=== PATIENT | female | born 1995 | race American Indian/Alaskan Native ===

== ENCOUNTER 2016-07-05 03:38 | Emergency (ER) | payer BC ==
[2016-07-05 05:30] LABS: Basophils % (Auto) 0.4 % (0.0-1.8); Eosinophils % (Auto) 2.2 % (0.0-4.3); Hematocrit 37.7 % (30.3-42.9); Hemoglobin 12.5 gm/dl (10.1-14.3); Mean Corpuscular HGB Conc 33 % (30-34); Mean Corpuscular Hemoglobin 29 pg (28-32); Mean Corpuscular Volume 87 fl (79-97); Platelet Count 295 K/mm3 (140-440); Red Blood Count 4.33 M/mm3 (3.65-5.03); Red Cell Distribution Width 12.4 % (13.2-15.2)
[2016-07-05 05:55] LABS: Anion Gap 18 mmol/L; BUN/Creatinine Ratio 18.33; Blood Urea Nitrogen 11 mg/dL (7-17); Carbon Dioxide 25 mmol/L (22-30); Chloride 99.6 mmol/L (98-107); Glucose 90 mg/dL (65-100); Potassium 3.7 mmol/L (3.6-5.0); Sodium 139 mmol/L (137-145)
--- NOTE | 2016-07-05 11:48 | XRay Report ---
CHEST TWO VIEWS: 07/05/16 11:02 CLINICAL: Chest pain. COMPARISON: None FINDINGS: Normal heart and pulmonary vasculature. The lungs are normally expanded and clear.The bones and soft tissues are unremarkable. IMPRESSION: Normal chest.
--- NOTE | 2016-07-05 11:50 | Emergency Department Report ---
ED Chest Pain HPI - General Chief Complaint: Chest Pain Stated Complaint: CHEST TIGHTNESS Time Seen by Provider: 07/05/16 10:17 Source: patient Mode of arrival: Stretcher Limitations: No Limitations - History of Present Illness Initial Comments: 21-year-old female with a past medical history of multiple sclerosis presents to the hospital complains of chest pain. Patient complaining of intermittent chest tightness rated 7/10 in intensity. Symptoms occurred at rest. No aggravating or alleviating factors reported. Pain rated 7/10 in intensity at times. Positive associated shortness of breath. Patient denies nausea, vomiting, cough, fever, calf tenderness, edema, recent travel, or history of PE/ DVT. Patient is on oral control pills. Patient states her multiple sclerosis is in remission and she has been compliant with her medications. 2 days ago patient was seen at [facility] for flank pain and dizziness. She was treated with IV fluids, medication for vertigo, he received a noncontrast CT abdomen and pelvis that was unremarkable at that time as per patient and her mother at the bedside.. Severity scale (0 -10): 7 - Related Data Home Medications Medication Instructions Recorded Confirmed Last Taken Copaxone 40 mg PO 3XW 07/05/16 07/05/16 Unknown Lo Loestrin Fe 1-10 Tablet 1 tab PO DAILY 07/05/16 07/05/16 Unknown Previous Rx's Medication Instructions Recorded Last Taken Type Ibuprofen [Motrin] 600 mg PO Q8H PRN #30 tablet 07/05/16 Unknown Rx Allergies Allergy/AdvReac Type Severity Reaction Status Date / Time No Known Allergies Allergy Verified 07/06/15 03:18 ALFRED score - Alfred Score Age > 65: (0) No Aspirin use within the Past 7 Days: (0) No 3 or more CAD Risk Factors: (0) No 2 or more Angina events in past 24 hrs: (0) No Known CAD with more than 50% Stenosis: (0) No Elevated Cardiac Markers: (0) No ST Deviation Greater than 0.5mm: (0) No ALFRED Score: 0 ED Review of Systems ROS: Stated complaint: CHEST TIGHTNESS Other details as noted in HPI Comment: All other systems reviewed and negative Other: Constitutional: No fevers chills Eyes: No eye pain visual changes ENT: No ear pain or throat pain Neck: Denies pain Respiratory: as per hpi Cardiovascular: as per hpi GI: Denies abdominal pain, nausea, vomiting, diarrhea : Denies dysuria Musculoskeletal: Denies back pain Skin: Denies rash, lesions, erythema Neurologic: Denies headache, numbness, weakness Psychiatric: Denies suicidal ideation, hallucinations ED Past Medical Hx - Past Medical History Additional medical history: multiple sclerosis - Surgical History Past Surgical History?: No - Social History Smoking Status: Never Smoker Substance Use Type: None - Medications Home Medications: Home Medications Medication Instructions Recorded Confirmed Last Taken Type Copaxone 40 mg PO 3XW 07/05/16 07/05/16 Unknown History Ibuprofen [Motrin] 600 mg PO Q8H PRN #30 tablet 07/05/16 Unknown Rx Lo Loestrin Fe 1-10 Tablet 1 tab PO DAILY 07/05/16 07/05/16 Unknown History ED Physical Exam - General Limitations: No Limitations - Other Other exam information: General: No limitations, patient is alert in no acute distress Head exam: Atraumatic, normocephalic Eyes exam: Normal appearance, pupils equal reactive to light, extraocular movements intact ENT: Moist mucous membrane, normal oropharynx Neck exam: Normal inspection, full range of motion, no meningismus nontender Respiratory exam: Clear to auscultation bilateral, no wheezes, rales, crackles Cardiovascular: Normal rate and rhythm, normal heart sounds Abdomen: Soft, nondistended, and nontender, with normal bowel sounds, no rebound, or guarding Extremity: Full range of motion normal inspection no deformity, no calf tenderness or edema Back: Normal Inspection, full range of motion, no tenderness Neurologic: Alert, oriented x3, cranial nerves intact, no motor or sensory deficit Psychiatric: normal affect, normal mood Skin: Warm, dry, intact ED Course Vital Signs 07/05/16 04:59 Temperature 98.4 F Pulse Rate 81 Respiratory 16 Rate Blood Pressure 104/73 Blood Pressure 104/73 [Right] O2 Sat by Pulse 100 Oximetry - Reevaluation(s) Reevaluation #1: 07/05/16 11:50 Patient stable in the ED without any distress. ED Medical Decision Making - Lab Data Result diagrams: 07/05/16 05:22 07/05/16 05:22 Lab Results 07/05/16 07/05/16 07/05/16 Range/Units 05:22 05:22 07:56 WBC 7.0 (4.5-11.0) K/mm3 RBC 4.33 (3.65-5.03) M/mm3 Hgb 12.5 (10.1-14.3) gm/dl Hct 37.7 (30.3-42.9) % MCV 87 (79-97) fl MCH 29 (28-32) pg MCHC 33 (30-34) % RDW 12.4 L (13.2-15.2) % Plt Count 295 (140-440) K/mm3 Lymph % (Auto) 46.7 H (13.4-35.0) % Davidson % (Auto) 8.0 H (0.0-7.3) % Eos % (Auto) 2.2 (0.0-4.3) % Baso % (Auto) 0.4 (0.0-1.8) % Lymph # 3.3 (1.2-5.4) K/mm3 Davidson # 0.6 (0.0-0.8) K/mm3 Eos # 0.2 (0.0-0.4) K/mm3 Baso # 0.0 (0.0-0.1) K/mm3 Seg Neutrophils % 42.7 (40.0-70.0) % Seg Neutrophils # 3.0 (1.8-7.7) K/mm3 D-Dimer (0-234) ng/mlDDU Sodium 139 (137-145) mmol/L Potassium 3.7 (3.6-5.0) mmol/L Chloride 99.6 (98-107) mmol/L Carbon Dioxide 25 (22-30) mmol/L Anion Gap 18 mmol/L BUN 11 (7-17) mg/dL Creatinine 0.6 L (0.7-1.2) mg/dL Estimated GFR > 60 ml/min BUN/Creatinine Ratio 18.33 % Glucose 90 (65-100) mg/dL Calcium 9.0 (8.4-10.2) mg/dL Troponin T < 0.010 < 0.010 (0.00-0.029) ng/mL 07/05/16 07/05/16 Range/Units 10:50 10:50 WBC (4.5-11.0) K/mm3 RBC (3.65-5.03) M/mm3 Hgb (10.1-14.3) gm/dl Hct (30.3-42.9) % MCV (79-97) fl MCH (28-32) pg MCHC (30-34) % RDW (13.2-15.2) % Plt Count (140-440) K/mm3 Lymph % (Auto) (13.4-35.0) % Davidson % (Auto) (0.0-7.3) % Eos % (Auto) (0.0-4.3) % Baso % (Auto) (0.0-1.8) % Lymph # (1.2-5.4) K/mm3 Davidson # (0.0-0.8) K/mm3 Eos # (0.0-0.4) K/mm3 Baso # (0.0-0.1) K/mm3 Seg Neutrophils % (40.0-70.0) % Seg Neutrophils # (1.8-7.7) K/mm3 D-Dimer 167.47 (0-234) ng/mlDDU Sodium (137-145) mmol/L Potassium (3.6-5.0) mmol/L Chloride (98-107) mmol/L Carbon Dioxide (22-30) mmol/L Anion Gap mmol/L BUN (7-17) mg/dL Creatinine (0.7-1.2) mg/dL Estimated GFR ml/min BUN/Creatinine Ratio % Glucose (65-100) mg/dL Calcium (8.4-10.2) mg/dL Troponin T < 0.010 (0.00-0.029) ng/mL - EKG Data -: EKG Interpreted by Me (sinus rate [address]-T wave inversion) - EKG Data When compared to previous EKG there are: previous EKG unavailable - Radiology Data Radiology results: report reviewed (chest x-ray PA and lateral: Normal) - Medical Decision Making Patient does not have any cardiac risk factors. Patient's only risk factor for PE is control pill use and patient does not present with DVT symptoms. Overall patient's lower pretest probability for a blood clot and has a negative d-dimer and therefore further imaging was not obtained. Patient also presents with normal vital signs including heart rate, blood pressure, and pulse oximetry. no Distress noted in the ED. Patient be discharged home with outpatient follow-up. - Differential Diagnosis atypical chest pain, anxiety, PE Critical Care Time: No Critical care attestation.: If time is entered above; I have spent that time in minutes in the direct care of this critically ill patient, excluding procedure time. ED Disposition Clinical Impression: Atypical chest pain, Multiple sclerosis Disposition: DISCHARGED TO HOME OR SELFCARE Is pt being admited?: No Does the pt Need Aspirin: No Condition: Stable Instructions: Chest Pain (ED) Additional Instructions: Take the medication as needed for pain. Follow-up with your physician for further evaluation. Return if symptoms worsen. Prescriptions: Ibuprofen [Motrin] 600 mg PO Q8H PRN #30 tablet PRN Reason: Pain Referrals: PRIMARY CARE, [Primary Care Provider] - 3-5 Days Time of Disposition: 11:57
[2016-07-05 12:26] VITALS: BP 104/61
== END 2016-07-05 12:26 | disposition home or self-care (01) ==
LOC: ED 03:38
DX: R07.89 Other chest pain (principal); G35 Multiple sclerosis
CPT/HCPCS: 36415; 71020; 80048; 84484; 85025; 85379; 93005; 93010

== ENCOUNTER 2017-02-06 11:10 | Outpatient (CLI) | payer BC ==
--- NOTE | 2017-02-17 18:07 | Magnetic Resonance Report ---
MR scan of the cranium was performed with and without contrast. Pulse sequences included: 1. T1 weighted sagittal and axial images without contrast and T1 axial and coronal images with contrast 2. T2 weighted axial and coronal images 3. FLAIR axial images 4. Diffusion-weighted axial images 5. Apparent diffusion coefficient images Views of the posterior fossa showed a normal craniocervical junction. Cerebellar pontine angles were normal with normal seventh-eighth nerve complexes. Brainstem and cerebellum were normal. The ventricular system showed no dilatation or distortion. Images of the hemispheres showed multiple areas of increased signal in the periventricular white matter consistent with Whittaker's fingers. No black holes were seen. Sinuses, pituitary, flow voids in the white earth of Weiss, orbits, and basal ganglia were normal. There are no abnormal areas of enhancement with contrast. Impression: Abnormal MR scan of the cranium with and without contrast a. multiple white matter lesions consistent with the diagnosis of multiple sclerosis this study was compared to the patient's previous study of 12/16/2015 and no significant changes are seen. She is radiologically stable.
== END 2017-02-06 11:11 | disposition home or self-care (01) ==
LOC: MRI 11:10
PROVIDERS: ATTEND Specialist
DX: G35 Multiple sclerosis (principal); R93.8 Abnormal findings on diagnostic imaging of other specified body structures
CPT/HCPCS: 70553; A9577

== ENCOUNTER 2017-10-31 02:11 | Emergency (ER) | payer OTHER, BC ==
[2017-10-31] MEDS ORDERED: TYLENOL ONE (05:00)
[2017-10-31] MEDS ORDERED: TYLENOL PO ONE (05:03)
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
[2017-10-31 13:31] VITALS: BP 118/71
== END 2017-10-31 13:30 | disposition home or self-care (01) ==
LOC: ED 02:11
DX: O9A.211 Injury, poisoning and certain other consequences of external causes complicating pregnancy, first trimester (principal); S86.911A Strain of unspecified muscle(s) and tendon(s) at lower leg level, right leg, initial encounter; Z3A.08 8 weeks gestation of pregnancy; R07.81 Pleurodynia; V49.59XA Passenger injured in collision with other motor vehicles in traffic accident, initial encounter; Y93.89 Activity, other specified; Y99.8 Other external cause status; Y92.89 Other specified places as the place of occurrence of the external cause
CPT/HCPCS: 36415; 71045; 76801; 76817; 84702

== ENCOUNTER 2017-11-05 00:49 | Emergency (ER) | payer BC, OTHER ==
[2017-11-05 00:56] VITALS: BP 102/64
== END 2017-11-05 00:50 | disposition left against medical advice (07) ==
LOC: ED 00:49
DX: R10.9 Unspecified abdominal pain (principal); Z53.21 Procedure and treatment not carried out due to patient leaving prior to being seen by health care provider

== ENCOUNTER 2017-12-16 12:42 | Outpatient (CLI) | payer BC | END 2017-12-16 12:43 | disposition home or self-care (01) | LOC: LAB 12:42 | PROVIDERS: ATTEND Nurse Practitioner Women's Health | DX: O20.9 Hemorrhage in early pregnancy, unspecified (principal); Z3A.15 15 weeks gestation of pregnancy | CPT/HCPCS: 86900; 86901 ==

== ENCOUNTER 2018-06-08 20:34 | Inpatient (IN) | payer BC, OTHER ==
[2018-06-08] MEDS ORDERED: XYLOCAINE 2% INFILTRATI ONE (22:08)
[2018-06-08] MEDS ORDERED: MINERAL OIL PO PRN (22:08)
[2018-06-08] MEDS ORDERED: BRETHINE SUB-Q PRN (22:08)
[2018-06-08] MEDS ORDERED: BRETHINE IVP PRN (22:08)
[2018-06-08 22:47] LABS: Hematocrit 31.7 % (30.3-42.9); Hemoglobin 10.3 gm/dl (10.1-14.3); Mean Corpuscular HGB Conc 33 % (30-34); Mean Corpuscular Volume 81 fl (79-97); Platelet Count 306 K/mm3 (140-440); Red Blood Count 3.94 M/mm3 (3.65-5.03); Red Cell Distribution Width 15.9 % (13.2-15.2)
[2018-06-08] MEDS ORDERED: PITOCin/NS 20 UNIT/1000ML DRIP 20 UNITS/1,000 ML BAG IV SCH (23:00)
[2018-06-08] MEDS: LACTATED RINGERS 1,000 ML IV SCH (23:21)
[2018-06-08] MEDS ORDERED: SUBLIMAZE IV ONE (23:47)
[2018-06-08] MEDS ORDERED: SUBLIMAZE ONE (23:51)
[2018-06-09] MEDS: LACTATED RINGERS 1,000 ML IV SCH ×2 (00:10→05:16)
[2018-06-09] MEDS ORDERED: NARCAN 2 MG/2 ML IV PRN (00:55)
--- NOTE | 2018-06-09 00:59 | Anesthesia Consultation ---
Anesthesia Consult and Med Hx Date of service: 06/09/18 - Airway Anesthetic Teeth Evaluation: Good ROM Head & Neck: Adequate Mental/Hyoid Distance: Adequate Mallampati Class: Class II Intubation Access Assessment: Good - Pulmonary Exam CTA: Yes - Cardiac Exam Cardiac Exam: RRR - Pre-Operative Health Status ASA Pre-Surgery Classification: ASA3 Proposed Anesthetic Plan: Epidural - Pulmonary Hx Smoking: No Hx Asthma: No Hx Respiratory Symptoms: No SOB: No COPD: No Home Oxygen Therapy: No Hx Pneumonia: No Hx Sleep Apnea: No - Cardiovascular System Hx Hypertension: No Hx Coronary Artery Disease: No Hx Heart Attack/AMI: No Hx Angina: No Hx Percutaneous Transluminal Coronary Angioplasty (PTCA): No Hx Cardia Arrhythmia: No Hx Pacemaker: No Hx Internal Defibrillator: No Hx Valvular Heart Disease: No Hx Heart Murmur: No Hx Peripheral Vascular Disease: No - Central Nervous System Hx Neuromuscular Disorder: Yes (multiple sclerosis) Hx Seizures: No CVA: No Hx Back Pain: No Hx Psychiatric Problems: No - Gastrointestinal Hx Ulcer: No Hx Gastroesophageal Reflux Disease: No - Endocrine Hx Renal Disease: No Hx End Stage Renal Disease: No Hx Cirrhosis: No Hx Liver Disease: No Hx Insulin Dependent Diabetes: No Hx Non-Insulin Dependent Diabetes: No Hx Thyroid Disease: No Hx Hypothyroidism: No Hx Hyperthyroidism: No - Hematic Hx Anemia: Yes (iron) Hx Sickle Cell Disease: No - Other Systems Hx Alcohol Use: No Hx Substance Use: No Hx Cancer: No Hx Obesity: No
[2018-06-09] MEDS ORDERED: fentaNYL-BUPIV 2 MCG/ML-0.125% 200 MCG/100 ML BAG EPIDURAL SCH (01:00)
--- NOTE | 2018-06-09 05:23 | History and Physical Report ---
History of Present Illness Date of examination: 06/09/18 (pt presented with c/o worsening ctx) Date of admission: 06/08/18 23:01 History of present illness: EDC Confirmation: 06/07/2018 Gestational Age: 9 6/7 weeks Past History : 1 Term Births: 0 Premature Births: 0 Living Children: 0 Para: 0 Mult. Births: 0 Prev : 0 Prev. attempt? 0 Aborta: 0 Elect. Ab: 0 Spont. Ab: 0 Ectopics: 0 Past Medical History: MS (2009) Past Surgical History: Mouth Family History Summary: Other family member - Has No Family History of Ovarvian Cancer - Entered On: 11/08/2017 Other family member - Has No Family History of Colon Cancer - Entered On: 11/08/2017 Other family member - Has No Family History of Breast Cancer - Entered On: 11/08/2017 Other family member - Has Family History of Diabetes - Entered On: 11/08/2017 Other family member - Has Family History of CVA or Stroke - Entered On: 11/08/2017 Other family member - Has Family History of Coronary Heart Disease - Entered On: 11/08/2017 Social History: Marital Status: Single Children: 0 Occupation: [employer] Risk Factors: Smoked Tobacco Use: Never smoker Drug use: no HIV high-risk behavior: low risk Alcohol use: yes Drinks per day: social Dietary Counseling: pn yes Past Medical History 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 of genital herpes: no Genetic History Congenital Heart Defect: Mom: no Dad: no Isacc Disease: Mom: no Dad: no Thalassemia Mom: no Dad: no Neural Tube Defect Mom: no Dad: no Down's Syndrome Mom: no Dad: no Abdon-Sachs Mom: no Dad: no Sickle Cell Disease/Trait Mom: no Dad: no Hemophilia Mom: no Dad: no Muscular Dystrophy Mom: no Dad: no Cystic Fibrosis Mom: no Dad: no Alejandra Chorea Mom: no Dad: no Mental Retardation Mom: no Dad: no Fragile X Mom: no Dad: no Other Genetic/Chromosomal Disorder Mom: no Dad: no Child w/other defect Mom: no Dad: no Active Medications: PLUS/IRON 27-1 MG ORAL TABLET ( VIT-FE FUMARATE-FA) 1 po q day as directed COPAXONE 40 MG/ML SUBCUTANEOUS SOLUTION PREFILLED SYRINGE (GLATIRAMER ACETATE) Current Allergies: No known allergies Past History - Obstetrical History Expected Date of Delivery: 06/07/18 Actual Gestation: 40 Week(s) 2 Day(s) : 1 Para: 0 Hx # Term Pregnancies: 0 Number of Pregnancies: 0 Spontaneous Abortions: 0 Induced : 0 Number of Living Children: 0 Medications and Allergies Allergies Allergy/AdvReac Type Severity Reaction Status Date / Time No Known Allergies Allergy Verified 07/06/15 03:18 Home Medications Medication Instructions Recorded Confirmed Last Taken Type Copaxone 40 mg PO 3XW 07/05/16 07/05/16 Unknown History Active Meds: Active Medications Ephedrine Sulfate (Ephedrine Sulfate) 10 mg IV Q2M PRN PRN Reason: Hypotension Ephedrine Sulfate (Ephedrine Sulfate) 10 mg IV Q2M PRN PRN Reason: Hypotension Lactated Ringer's (Lactated Ringers) 1,000 mls @ 125 mls/hr IV DIRECT MADELINE Last Admin: 06/09/18 05:16 Dose: 125 mls/hr Documented by: Oxytocin/Sodium Chloride (Pitocin/Ns 20 Unit/1000ml Drip) 20 units in 1,000 mls @ 125 mls/hr IV DIRECT MADELINE Fentanyl/Bupivacaine/Sodium Chlor (Fentanyl-Bupiv 2 Mcg/Ml-0.125%) 200 mcg in 100 mls @ 12 mls/hr EPIDURAL TITR MADELINE; Protocol Last Admin: 06/09/18 01:24 Dose: 12 mls/hr Documented by: Mineral Oil (Mineral Oil) 30 ml PO QHS PRN PRN Reason: Constipation Naloxone HCl (Narcan 2 Mg/2 Ml) 0.2 mg IV Q5M PRN PRN Reason: Respiratory sedation Terbutaline Sulfate (Brethine) 0.25 mg SUB-Q ONCE PRN PRN Reason: Hyperstimulation/Hypertonicity Terbutaline Sulfate (Brethine) 0.25 mg IVP ONCE PRN PRN Reason: Hyperstimulation/Hypertonicity - Vital Signs Vital signs: Vital Signs Pulse BP 81 121/78 06/08/18 21:13 06/08/18 21:13 Temp Pulse Resp BP Pulse Ox 99.0 F 84 18 112/64 100 06/09/18 00:04 06/09/18 05:17 06/09/18 03:24 06/09/18 04:44 06/09/18 05:17 - Physical Exam Breasts: Positive: deferred Cardiovascular: Regular rate, Normal S1, Normal S2 Lungs: Positive: Normal air movement Abdomen: Positive: normal appearance, soft, normal bowel sounds. Negative: distention, tenderness Genitourinary (Female): Positive: normal external genitalia, normal perenium Vulva: both: normal Vagina: Positive: normal moisture. Negative: discharge Cervix: Negative: lesion, discharge Uterus: Positive: normal size, normal contour Adnexa: both: normal Anus/Rectum: Positive: normal perianal skin, heme negative. Negative: rectal mass, hemorrhoids Extremities: Positive: normal Deep Tendon Reflex Grade: Normal +2 - Obstetrical FHR: category 1 Uterine Contraction Monitor Mode: External Cervical Dilatation: 4 (per human services manager) Cervical Effacement Percentage: 80 station: -2 Uterine Contraction Pattern: Regular Uterine Tone Measurement Phase: Resting Uterine Contraction Intensity: Moderate Results Result Diagrams: 06/08/18 22:20 Abnormal lab results 06/08/18 Range/Units 22:20 MCH 26 L (28-32) pg RDW 15.9 H (13.2-15.2) % All other labs normal. GBS NEGATIVE HBsAg Screen Negative Negative *1 RPR Non Reactive Non Reactive *2 Rubella Antibodies, IgG 5.41 index Immune >0.99 *3 Non-immune <0.90 Equivocal 0.90 - 0.99 Immune >0.99 ABO Grouping A *4 Rh Factor Positive *5 Please note: Prior records for this patient's ABO / Rh type are not available for additional verification. Antibody Screen Negative Negative *6 WBC 9.2 x10E3/uL 3.4-10.8 *7 RBC [L] 3.60 x10E6/uL 3.77-5.28 *8 Hemoglobin [L] 10.5 g/dL 11.1-15.9 *9 Hematocrit [L] 30.9 % 34.0-46.6 *10 MCV 86 fL 79-97 *11 MCH 29.2 pg 26.6-33.0 *12 MCHC 34.0 g/dL 31.5-35.7 *13 RDW 13.6 % 12.3-15.4 *14 Platelets 242 x10E3/uL 150-379 *15 Neutrophils 70 % Not Estab. *16 Lymphs 20 % Not Estab. *17 Monocytes 9 % Not Estab. *18 Eos 1 % Not Estab. *19 Basos 0 % Not Estab. *20 ! Immature Cells <No Reported Value> *21 Neutrophils (Absolute) 6.5 x10E3/uL 1.4-7.0 *22 Lymphs (Absolute) 1.8 x10E3/uL 0.7-3.1 *23 Monocytes(Absolute) 0.8 x10E3/uL 0.1-0.9 *24 Eos (Absolute) 0.1 x10E3/uL 0.0-0.4 *25 Baso (Absolute) 0.0 x10E3/uL 0.0-0.2 *26 ! Immature Granulocytes 0 % Not Estab. *27 ! Immature Grans (Abs) 0.0 x10E3/uL 0.0-0.1 *28 ! NRBC <No Reported Value> *29 Hematology Comments: <No Reported Value> *30 Tests: (3) HCV Ab w/Rflx to Verification ([id number]) ! HCV Ab <0.1 s/co ratio 0.0-0.9 *54 Tests: (4) Comment: ([id number]) ! Comment: SPRCS *55 Non reactive HCV antibody screen is consistent with no HCV infection, unless recent infection is suspected or other evidence exists to indicate HCV infection. Tests: (5) Panel 027416 ([id number]) HIV Screen 4th Generation wRfx Non Reactive Non Reactive *56 Tests: (6) Urine Culture, Routine ([id number]) Urine Culture, Routine Final report *57 Tests: (7) Result ([id number]) ! Result 1 No growth *58 Assessment and Plan 23yo @ 40 weeks in active labor GBS Negative Pt states she does not need any treatment for the MS while in labor. She will restart her meds when she goes home. Orders in EMR
--- NOTE | 2018-06-09 05:24 | Progress Note ---
Assessment and Plan Pt c/o some itching SVE 9,100,0 AROM meconium NICU notified CTX Q1-2 50 mod Cat 1 strip All findings and concerns explained to pt and family. Anticipate delivery. Subjective - Subjective Date of service: 06/09/18 (pt c/o itching after epidural) Interval history: EDC Confirmation: 06/07/2018 Gestational Age: 9 6/7 weeks Past History : 1 Term Births: 0 Premature Births: 0 Living Children: 0 Para: 0 Mult. Births: 0 Prev : 0 Prev. attempt? 0 Aborta: 0 Elect. Ab: 0 Spont. Ab: 0 Ectopics: 0 Past Medical History: MS (2009) Past Surgical History: Mouth Family History Summary: Other family member - Has No Family History of Ovarvian Cancer - Entered On: 11/08/2017 Other family member - Has No Family History of Colon Cancer - Entered On: 11/08/2017 Other family member - Has No Family History of Breast Cancer - Entered On: 11/08/2017 Other family member - Has Family History of Diabetes - Entered On: 11/08/2017 Other family member - Has Family History of CVA or Stroke - Entered On: 11/08/2017 Other family member - Has Family History of Coronary Heart Disease - Entered On: 11/08/2017 Social History: Marital Status: Single Children: 0 Occupation: [employer] [employer] Risk Factors: Smoked Tobacco Use: Never smoker Drug use: no HIV high-risk behavior: low risk Alcohol use: yes Drinks per day: social Dietary Counseling: pn yes Past Medical History 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 of genital herpes: no Genetic History Congenital Heart Defect: Mom: no Dad: no Isacc Disease: Mom: no Dad: no Thalassemia Mom: no Dad: no Neural Tube Defect Mom: no Dad: no Down's Syndrome Mom: no Dad: no Abdon-Sachs Mom: no Dad: no Sickle Cell Disease/Trait Mom: no Dad: no Hemophilia Mom: no Dad: no Muscular Dystrophy Mom: no Dad: no Cystic Fibrosis Mom: no Dad: no Martin Chorea Mom: no Dad: no Mental Retardation Mom: no Dad: no Fragile X Mom: no Dad: no Other Genetic/Chromosomal Disorder Mom: no Dad: no Child w/other defect Mom: no Dad: no Active Medications: PLUS/IRON 27-1 MG ORAL TABLET ( VIT-FE FUMARATE-FA) 1 po q day as directed COPAXONE 40 MG/ML SUBCUTANEOUS SOLUTION PREFILLED SYRINGE (GLATIRAMER ACETATE) Current Allergies: No known allergies Patient reports: movement normal Objective - Vital Signs Vital Signs: Vital Signs - 12hr 06/08/18 06/08/18 06/09/18 21:13 21:57 00:04 Temperature 98.4 F 99.0 F Pulse Rate 81 81 87 Respiratory 18 18 Rate Blood Pressure 121/78 Blood Pressure 121/78 131/60 [Left] O2 Sat by Pulse Oximetry 06/09/18 06/09/18 06/09/18 00:05 00:11 00:16 Temperature Pulse Rate 87 76 89 Respiratory Rate Blood Pressure 131/60 Blood Pressure [Left] O2 Sat by Pulse 100 100 Oximetry 06/09/18 06/09/18 06/09/18 00:21 00:26 00:31 Temperature Pulse Rate 81 80 93 H Respiratory Rate Blood Pressure Blood Pressure [Left] O2 Sat by Pulse 100 100 100 Oximetry 06/09/18 06/09/18 06/09/18 00:33 00:35 00:36 Temperature Pulse Rate 102 H 102 H 103 H Respiratory Rate Blood Pressure 146/83 136/67 Blood Pressure [Left] O2 Sat by Pulse 100 Oximetry 06/09/18 06/09/18 06/09/18 00:37 00:38 00:40 Temperature Pulse Rate 102 H 87 102 H Respiratory Rate Blood Pressure 125/76 133/77 135/81 Blood Pressure [Left] O2 Sat by Pulse Oximetry 06/09/18 06/09/18 06/09/18 00:41 00:42 00:44 Temperature Pulse Rate 106 H 101 H 91 H Respiratory Rate Blood Pressure 132/80 120/75 Blood Pressure [Left] O2 Sat by Pulse 100 Oximetry 06/09/18 06/09/18 06/09/18 00:46 00:51 00:52 Temperature Pulse Rate 88 108 H 82 Respiratory Rate Blood Pressure 122/81 121/75 118/76 Blood Pressure [Left] O2 Sat by Pulse 99 97 Oximetry 06/09/18 06/09/18 06/09/18 00:54 00:56 00:58 Temperature Pulse Rate 88 91 H 121 H Respiratory Rate Blood Pressure 116/77 109/61 105/60 Blood Pressure [Left] O2 Sat by Pulse 100 Oximetry 06/09/18 06/09/18 06/09/18 01:01 01:06 01:11 Temperature Pulse Rate 121 H 166 H 99 H Respiratory Rate Blood Pressure 110/64 109/65 Blood Pressure [Left] O2 Sat by Pulse 100 100 100 Oximetry 06/09/18 06/09/18 06/09/18 01:15 01:16 01:21 Temperature Pulse Rate 97 H 99 H 92 H Respiratory Rate Blood Pressure 98/60 110/74 Blood Pressure [Left] O2 Sat by Pulse 100 99 Oximetry 06/09/18 06/09/18 06/09/18 01:25 01:26 01:31 Temperature Pulse Rate 68 89 91 H Respiratory Rate Blood Pressure 110/57 Blood Pressure [Left] O2 Sat by Pulse 93 98 100 Oximetry 06/09/18 06/09/18 06/09/18 01:36 01:41 01:46 Temperature Pulse Rate 77 78 79 Respiratory Rate Blood Pressure 110/68 Blood Pressure [Left] O2 Sat by Pulse 99 98 100 Oximetry 06/09/18 06/09/18 06/09/18 01:51 01:56 02:01 Temperature Pulse Rate 87 81 79 Respiratory Rate Blood Pressure Blood Pressure [Left] O2 Sat by Pulse 100 100 99 Oximetry 06/09/18 06/09/18 06/09/18 02:06 02:11 02:12 Temperature Pulse Rate 83 86 80 Respiratory Rate Blood Pressure 104/69 Blood Pressure [Left] O2 Sat by Pulse 100 99 Oximetry 06/09/18 06/09/18 06/09/18 02:16 02:21 02:26 Temperature Pulse Rate 79 75 73 Respiratory Rate Blood Pressure Blood Pressure [Left] O2 Sat by Pulse 99 99 100 Oximetry 06/09/18 06/09/18 06/09/18 02:31 02:36 02:41 Temperature Pulse Rate 87 70 87 Respiratory Rate Blood Pressure Blood Pressure [Left] O2 Sat by Pulse 100 100 98 Oximetry 06/09/18 06/09/18 06/09/18 02:42 02:44 02:46 Temperature Pulse Rate 66 85 83 Respiratory Rate Blood Pressure 130/78 Blood Pressure [Left] O2 Sat by Pulse 91 99 Oximetry 06/09/18 06/09/18 06/09/18 02:51 02:56 03:01 Temperature Pulse Rate 66 94 H 76 Respiratory Rate Blood Pressure Blood Pressure [Left] O2 Sat by Pulse 99 87 99 Oximetry 06/09/18 06/09/18 06/09/18 03:06 03:11 03:16 Temperature Pulse Rate 66 90 69 Respiratory Rate Blood Pressure Blood Pressure [Left] O2 Sat by Pulse 100 98 99 Oximetry 06/09/18 06/09/18 06/09/18 03:21 03:24 03:26 Temperature Pulse Rate 82 86 Respiratory 18 Rate Blood Pressure Blood Pressure [Left] O2 Sat by Pulse 98 98 Oximetry 06/09/18 06/09/18 06/09/18 03:31 03:36 03:41 Temperature Pulse Rate 86 71 90 Respiratory Rate Blood Pressure Blood Pressure [Left] O2 Sat by Pulse 98 100 98 Oximetry 06/09/18 06/09/18 06/09/18 03:46 03:51 03:56 Temperature Pulse Rate 81 71 88 Respiratory Rate Blood Pressure Blood Pressure [Left] O2 Sat by Pulse 96 97 98 Oximetry 06/09/18 06/09/18 06/09/18 04:01 04:06 04:07 Temperature Pulse Rate 82 71 83 Respiratory Rate Blood Pressure Blood Pressure [Left] O2 Sat by Pulse 97 98 92 Oximetry 06/09/18 06/09/18 06/09/18 04:11 04:16 04:20 Temperature Pulse Rate 78 85 81 Respiratory Rate Blood Pressure Blood Pressure [Left] O2 Sat by Pulse 97 97 94 Oximetry 06/09/18 06/09/18 06/09/18 04:21 04:26 04:31 Temperature Pulse Rate 82 74 77 Respiratory Rate Blood Pressure Blood Pressure [Left] O2 Sat by Pulse 97 96 94 Oximetry 06/09/18 06/09/18 06/09/18 04:36 04:41 04:42 Temperature Pulse Rate 94 H 89 92 H Respiratory Rate Blood Pressure Blood Pressure [Left] O2 Sat by Pulse 94 97 92 Oximetry 06/09/18 06/09/18 06/09/18 04:44 04:46 04:49 Temperature Pulse Rate 72 80 96 H Respiratory Rate Blood Pressure 112/64 Blood Pressure [Left] O2 Sat by Pulse 96 93 Oximetry 06/09/18 06/09/1806/09/19 04:51 04:54 04:56 Temperature Pulse Rate 97 H 90 92 H Respiratory Rate Blood Pressure Blood Pressure [Left] O2 Sat by Pulse 95 92 94 Oximetry 06/09/18 06/09/18 06/09/18 05:01 05:07 05:12 Temperature Pulse Rate 76 95 H 86 Respiratory Rate Blood Pressure Blood Pressure [Left] O2 Sat by Pulse 96 97 96 Oximetry 06/09/18 06/09/18 05:17 05:22 Temperature 98.8 F Pulse Rate 91 H 83 Respiratory 18 Rate Blood Pressure Blood Pressure 112/64 [Left] O2 Sat by Pulse 100 99 Oximetry - Exam Breasts: deferred Cardiovascular: Regular rate Lungs: Normal air movement Abdomen: Present: normal appearance, soft. Absent: distention, tenderness Uterus: Present: normal FHR: auscultation normal, category 1 Uterine Contraction Monitor Mode: External Cervical Dilatation: 9 (AROM Meconium) Cervical Effacement Percentage: 100 station: 0 Uterine Contraction Pattern: Irregular Uterine Tone Measurement Phase: Resting Uterine Contraction Intensity: Moderate Extremities: normal Deep Tendon Reflex Grade: Normal +2 - Labs Labs: Abnormal Labs 06/08/18 22:20 MCH 26 L RDW 15.9 H Laboratory Results - last 24 hr 06/08/18 06/08/18 22:20 22:20 WBC 8.7 RBC 3.94 Hgb 10.3 Hct 31.7 MCV 81 MCH 26 L MCHC 33 RDW 15.9 H Plt Count 306 Blood Type A POSITIVE Antibody Screen Negative
[2018-06-09] MEDS ORDERED: BENADRYL IV ONE (05:33)
[2018-06-09] MEDS ORDERED: PHENERGAN PO PRN (06:10)
[2018-06-09] MEDS ORDERED: DULCOLAX PR PRN (06:10)
[2018-06-09] MEDS ORDERED: LANSINOH TP PRN (06:10)
[2018-06-09] MEDS ORDERED: ZOFRAN IV PRN (06:10)
[2018-06-09] MEDS ORDERED: TUCKS PAD TP PRN (06:10)
[2018-06-09] MEDS ORDERED: MILK OF MAGNESIA PO PRN (06:10)
[2018-06-09] MEDS ORDERED: BENADRYL PO PRN (06:10)
--- NOTE | 2018-06-09 06:26 | Procedure Note ---
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 Pit IVFs Placenta sent to pathology 8/9, EBL 300, Wgt 7-8 Mom and baby remain LDR stable - Infant A at 1 minute: 8 at 5 minutes: 9 Gender: Female (wgt 7-8)
[2018-06-09] MEDS ORDERED: SODIUM CHLORIDE FLUSH SYRINGE 10 ML IV NR (07:00)
[2018-06-09] MEDS: PRENATAL VITAMIN PO SCH ×2 (09:00→12:58)
[2018-06-09] MEDS: COLACE PO SCH ×2 (12:58→21:01)
[2018-06-09] MEDS: IBUPROFEN PO SCH ×2 (12:58→17:47)
[2018-06-09 19:31] LABS: Hematocrit 26.7 % (30.3-42.9); Hemoglobin 8.8 gm/dl (10.1-14.3)
[2018-06-09] MEDS: TYLENOL PO PRN (21:00)
[2018-06-10] MEDS: IBUPROFEN PO SCH ×3 (00:14→12:27)
[2018-06-10] MEDS ORDERED: BOOSTRIX IM ONE (06:00)
[2018-06-10] MEDS ORDERED: M-M-R II VACCINE SUB-Q ONE (06:00)
--- NOTE | 2018-06-10 09:26 | Discharge Summary ---
Providers - Providers Date of Admission: 06/08/18 23:01 Date of discharge: 06/10/18 (patient desires d/c today) Attending physician: VENICE FRANCISCO Primary care physician: DANIEL MARISCAL Hospitalization Reason for admission: labor Condition: Good Pertinent studies: post delivery H&H 8.8/26.7. asymptomatic. rx for iron generated. Procedures: Hospital course: uncomplicated labor & delivery and course Disposition: - TO HOME OR SELFCARE Core Measure Documentation - Palliative Care Palliative Care/ Comfort Measures: Not Applicable - Core Measures Any of the following diagnoses?: none Exam - Constitutional Vitals: Temp Pulse Resp BP Pulse Ox 98.5 F 68 18 120/85 98 06/10/18 08:42 06/10/18 08:42 06/10/18 08:42 06/10/18 08:42 06/09/18 16:56 General appearance: Present: no acute distress, well-nourished - EENT Eyes: Present: PERRL ENT: hearing intact, clear oral mucosa - Neck Neck: Present: supple, normal ROM - Respiratory Respiratory effort: normal Respiratory: bilateral: CTA - Cardiovascular Rhythm: regular Heart Sounds: Present: S1 & S2. Absent: rub, click - Extremities Extremities: pulses symmetrical, No edema Peripheral Pulses: within normal limits - Abdominal General gastrointestinal: Present: soft, non-tender, non-distended, normal bowel sounds Female genitourinary: Present: normal - Integumentary Integumentary: Present: clear, warm, dry - Musculoskeletal Musculoskeletal: gait normal, strength equal bilaterally - Psychiatric Psychiatric: appropriate mood/affect, intact judgment & insight - Neurologic Neurologic: CNII-XII intact, moves all extremities - Additional findings Additional findings: Fundus firm, scant bleeding. Patient reports pain is well controlled with IBU, rx to go home with patient. Breasts are feeling well, bottle feeding only. Instructed to wear snug fitting bra. Plan Activity: no restrictions Diet: regular Follow up with: DANIEL MARISCAL MD [Primary Care Provider] - 7 Days ROSANGELA CAM CNM [Advanced Practice Nurse] - 07/11/18 (Congratulations! Please call [facility] at [phone] to schedule appointment for 4 weeks. Call with any questions or concerns. )
[2018-06-10] MEDS: PRENATAL VITAMIN PO SCH ×2 (09:52→10:08)
[2018-06-10] MEDS: COLACE PO SCH (09:52)
[2018-06-10] MEDS: TYLENOL PO PRN (09:52)
[2018-06-10 13:43] VITALS: BP 113/78
== END 2018-06-10 14:40 | disposition home or self-care (01) | DRG 806 ==
LOC: TRG 20:34 → LD 23:01 → OB 06-09 08:41
PROVIDERS: ADMIT Obstetrics & Gynecology; ATTEND Obstetrics & Gynecology
PROC: 10E0XZZ Delivery of Products of Conception, External Approach (ICD-10-PCS; principal; 2018-06-09)
PROC: 3E0R3BZ Introduction of Anesthetic Agent into Spinal Canal, Percutaneous Approach (ICD-10-PCS; 2018-06-09)
PROC: 00HU33Z Insertion of Infusion Device into Spinal Canal, Percutaneous Approach (ICD-10-PCS; 2018-06-09)
PROC: 3E0234Z Introduction of Serum, Toxoid and Vaccine into Muscle, Percutaneous Approach (ICD-10-PCS; 2018-06-10)
DX: O77.0 Labor and delivery complicated by meconium in amniotic fluid (principal); O99.354 Diseases of the nervous system complicating childbirth; Z37.0 Single live birth; Z3A.40 40 weeks gestation of pregnancy; Z23 Encounter for immunization; G35 Multiple sclerosis
CPT/HCPCS: 36415; 85014; 85018; 85027; 86592; 86850; 86900; 86901; 88307; 90707; G0378; J2590; J3010; J7120

== ENCOUNTER 2019-03-23 01:05 | Emergency (ER) | payer OTHER, BC ==
[2019-03-23 01:15] VITALS: BP 105/68
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
--- NOTE | 2019-03-23 04:15 | XRay Report ---
CERVICAL SPINE 3 VIEWS 0253 INDICATION: neck pain COMPARISON: None available. FINDINGS: Mild scoliosis is seen. No soft tissue swelling is noted. Disc spaces are maintained. No fr actures or subluxations are seen. Signer Name: Juan Luis Giraldo MD Signed: 03/23/2019 4:11 AM Workstation Name: [id number]
== END 2019-03-23 04:10 | disposition home or self-care (01) ==
LOC: ED 01:05
DX: M79.18 Myalgia, other site (principal); V49.59XA Passenger injured in collision with other motor vehicles in traffic accident, initial encounter; Y93.89 Activity, other specified; Y92.488 Other paved roadways as the place of occurrence of the external cause; Y99.8 Other external cause status
CPT/HCPCS: 72040

== ENCOUNTER 2021-11-21 21:20 | Emergency (ER) | payer BC, OTHER ==
[2021-11-21 22:13] LABS: Basophils % (Auto) 0.2 % (0.0-1.8); Eosinophils # (Auto) 0.1 K/mm3 (0.0-0.4); Eosinophils % (Auto) 0.9 % (0.0-4.3); Hematocrit 30.3 % (30.3-42.9); Lymphocytes # (Auto) 2.3 K/mm3 (1.2-5.4); Lymphocytes % (Auto) 41.2 % (13.4-35.0); Mean Corpuscular HGB Conc 33 % (30-34); Mean Corpuscular Volume 82 fl (79-97); Monocytes # (Auto) 0.4 K/mm3 (0.0-0.8); Monocytes % (Auto) 7.3 % (0.0-7.3); Platelet Count 331 K/mm3 (140-440); Red Blood Count 3.68 M/mm3 (3.65-5.03); Red Cell Distribution Width 14.1 % (13.2-15.2)
[2021-11-22 00:01] LABS: Bilirubin,Urine NEG (Negative); Blood,Urine LG (Negative); Color,Urine Yellow (Yellow); Urobilinogen,Urine < 2.0 mg/dL (<2.0)
[2021-11-22 00:07] LABS: Mucus,Urine 2+ /HPF
[2021-11-22 00:09] LABS: RBC,Urine > 182.0 /HPF (0.0-6.0)
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
--- NOTE | 2021-11-22 02:33 | Ultrasound Report ---
ULTRASOUND PELVIS INDICATION / CLINICAL INFORMATION: vag bleed s/p 3 weeks ago r/o retain part. TECHNIQUE: Transvaginal. Duplex Color Doppler used: Yes. COMPARISON: None available FINDINGS: UTERUS: The uterus measures 7.7 x 4.9 x 5.9 cm. The uterus demonstrates a normal sonographic appeara nce. Endometrial stripe is heterogeneous and thickened, measuring 1.1 cm. There is prominent increase d vascularity. RIGHT ADNEXA: 2.3 cm simple cyst. Normal color Doppler blood flow. LEFT ADNEXA: No significant ovarian cyst or mass. Normal color Doppler blood flow. URINARY BLADDER: No significant abnormality. FREE FLUID: None. ADDITIONAL FINDINGS: None. IMPRESSION: 1. Endometrial complex is heterogeneous and thickened, measuring 1.1 cm, with prominent increased vas cularity. This raises concern for retained products of conception. Recommend correlation with beta hC G. 2. 2.3 cm simple right ovarian cyst. No evidence of ovarian torsion. Signer Name: Narendra Sarabia MD Signed: 11/22/2021 2:28 AM Workstation Name: [id number]
[2021-11-22 03:50] VITALS: BP 113/78
== END 2021-11-22 03:37 | disposition home or self-care (01) ==
LOC: ED 21:20
DX: O02.1 Missed abortion (principal)
CPT/HCPCS: 76830; 81001; 84702; 85025; 99284